=== PATIENT | female | born 1960 | race Caucasian/White ===

== ENCOUNTER → 2016-08-15 | Outpatient (CLI) | payer BC ==
[2016-08-16 13:27] LABS: Cow's Milk IgE Class CLASS 0; Egg White IgE <0.35 kU/L (<0.35); Peanut IgE <0.35 kU/L (<0.35); Potato IgE <0.35 kU/L (<0.35); Potato IgE Class CLASS 0; Soybean IgE <0.35 kU/L (<0.35)
== END | disposition home or self-care (01) ==
LOC: LABWHC1 15:02
PROVIDERS: ATTEND Otolaryngology
DX: J30.89 Other allergic rhinitis (principal)
CPT/HCPCS: 36415; 86003

== ENCOUNTER → 2018-01-29 | Outpatient (CLI) | payer SELFPAY | END | disposition home or self-care (01) | LOC: LABWHC1 10:11 | PROVIDERS: ATTEND Otolaryngology | DX: J30.89 Other allergic rhinitis (principal) | CPT/HCPCS: 36415; 82785 ==

== ENCOUNTER 2018-05-18 14:33 | Emergency (ER) | payer BC ==
[2018-05-18 14:42] VITALS: TEMP 98
[2018-05-18] MEDS ORDERED: SODIUM CHLORIDE 0.9% 1,000 ML IV STA (15:13)
--- NOTE | 2018-05-18 15:20 | ED ---
General Adult HPI - General Chief complaint: Chest Pain Stated complaint: Chest heavy,syncope Time Seen by Provider: 05/18/18 14:44 Source: patient Mode of arrival: wheelchair Limitations: no limitations - History of Present Illness Initial comments: Dictation was produced using [employer] dictation software. please excuse any grammatical, word or spelling errors. Chief Complaint: 57-year-old female with past medical history of several food ALLERGIES, asthma presents with syncope and generalized weakness. History of Present Illness: Patient is a 57-year-old female, she is brought in by her . Patient was sitting in the judaism. She finished singing in front of the crowd when she immediately felt a flush over her body. Patient states she fell severely weak. Patient barely ate today. She felt so weak that she stumbled. Other individuals at the judaism helped her to the office. A assisted her and walking outside when she almost fell to the ground. Patient states that earlier this morning she has been feeling otherwise very well. She is denies any episode like this in the past. Patient states since that episode she's been feeling severely fatigued. Patient states she had one episode of some pins and needles 3-4 days ago that lasted for several minutes but resolved spontaneously. Patient has nontender deficits today. Patient states he might have dark stools. Also reports that they're following up with ENT physician who also is an expert at food ALLERGIES. Patient has been abstaining from certain foods due to potential food ALLERGIES. reports that patient has been a little pale mild usual. The ROS documented in this emergency department record has been reviewed and confirmed by me. Those systems with pertinent positive or negative responses have been documented in the HPI. All other systems are other negative and/or noncontributory. PHYSICAL EXAM: General Impression: Alert and oriented x3, lethargic HEENT: Normocephalic atraumatic, extra-ocular movements intact, pupils equal and reactive to light bilaterally, mucous membranes moist, subconjunctival pallor Cardiovascular: Heart regular rate and rhythm, S1&S2 audible, no murmurs, rubs or gallops Chest: Lungs clear to auscultation bilaterally, no rhonchi, no wheeze, no rales Abdomen: Bowel sounds present, abdomen soft, non-tender, non-distended, no organomegaly Musculoskeletal: Pulses present and equal in all extremities, no peripheral edema Motor: Power 5/5 bilaterally, no focal deficits noted Neurological: CN II-XII grossly intact, no focal motor or sensory deficits noted Skin: Intact with no visualized rashes Psych: Normal affect and mood ED course: 57-year-old male presents after a generalized weakness and syncopal episode. As upon arrival are within acceptable limits. EKG is unremarkable. Patient is well-appearing. Labs obtained showing no acute process. CBC, coag panel, metabolic panel, electrolyte, T6 level were all within acceptable limits. Does have mild thrombocytopenia 129. Chest x-ray unremarkable. Patient given intravenous fluids. She is reevaluated and found to be in stable medical condition. Discussed with patient the importance of following with primary care physician for outpatient management of symptoms. Patient's blood pressure and repeat vital signs are improved. Patient clear for discharge. EKG interpretation: Ventricular rate sodium 1, normal sinus rhythm, AL interval 164, care is 80, QTc 425. No AL prolongation, no QTC prolongation, no ST or T- wave changes noted. . Overall, this EKG is unremarkable - Related Data Home Medications Medication Instructions Recorded Confirmed Fexofenadine/Pseudoephedrine 1 tab PO DAILY 05/18/18 05/18/18 [Beatriz-D 24 Hour Tablet] Montelukast [Singulair] 10 mg PO HS 05/18/18 05/18/18 Multivitamins, Thera [Multivitamin 1 tab PO DAILY 05/18/18 05/18/18 (formulary)] Allergies Allergy/AdvReac Type Severity Reaction Status Date / Time almond AdvReac Unknown Verified 05/18/18 15:28 bran AdvReac Unknown Verified 05/18/18 15:28 cashew nut AdvReac Unknown Verified 05/18/18 15:28 cheese AdvReac Unknown Verified 05/18/18 15:28 coconut AdvReac Unknown Verified 05/18/18 15:28 egg AdvReac Unknown Verified 05/18/18 15:28 gluten AdvReac Unknown Verified 05/18/18 15:28 milk AdvReac Unknown Verified 05/18/18 15:28 mustard AdvReac Unknown Verified 05/18/18 15:28 oregano AdvReac Unknown Verified 05/18/18 15:28 peanut AdvReac Unknown Verified 05/18/18 15:28 peas AdvReac Unknown Verified 05/18/18 15:28 sesame seed AdvReac Unknown Verified 05/18/18 15:28 soybean AdvReac Unknown Verified 05/18/18 15:28 spinach AdvReac Unknown Verified 05/18/18 15:28 sunflower seed AdvReac Unknown Verified 05/18/18 15:28 walnut AdvReac Unknown Verified 05/18/18 15:28 wheat AdvReac Unknown Verified 05/18/18 15:28 Yeast AdvReac Unknown Verified 05/18/18 15:28 MAYRA SEED AdvReac Unknown Uncoded 05/18/18 15:28 COTTAGE CHEESE AdvReac Unknown Uncoded 05/18/18 15:28 GREEN BEANS AdvReac Unknown Uncoded 05/18/18 15:28 SAFFLOWER AdvReac Unknown Uncoded 05/18/18 15:28 YOGURT AdvReac Unknown Uncoded 05/18/18 15:28 Review of Systems ROS Statement: Those systems with pertinent positive or pertinent negative responses have been documented in the HPI. ROS Other: All systems not noted in ROS Statement are negative. Past Medical History Past Medical History: Asthma History of Any Multi-Drug Resistant Organisms: None Reported Additional Past Surgical History / Comment(s): cyst removal from breast Past Psychological History: No Psychological Hx Reported Smoking Status: Never smoker Past Alcohol Use History: None Reported Past Drug Use History: None Reported General Exam Limitations: no limitations Course Vital Signs 05/18/18 05/18/18 14:37 15:01 Temperature 98 F Pulse Rate 78 Pulse Rate [ 70 Tack Maker ] Respiratory 18 18 Rate Blood Pressure 161/104 O2 Sat by Pulse 100 Oximetry Medical Decision Making - Lab Data Result diagrams: 05/18/18 15:27 05/18/18 15:27 Lab Results 05/18/18 05/18/18 05/18/18 Range/Units 15:27 15:27 15:27 WBC 4.8 (3.8-10.6) k/uL RBC 4.46 (3.80-5.40) m/uL Hgb 13.5 (11.4-16.0) gm/dL Hct 40.4 (34.0-46.0) % MCV 90.6 (80.0-100.0) fL MCH 30.2 (25.0-35.0) pg MCHC 33.4 (31.0-37.0) g/dL RDW 12.7 (11.5-15.5) % Plt Count 129 L (150-450) k/uL Neutrophils % 58 % Lymphocytes % 29 % Monocytes % 6 % Eosinophils % 4 % Basophils % 1 % Neutrophils # 2.8 (1.3-7.7) k/uL Lymphocytes # 1.4 (1.0-4.8) k/uL Monocytes # 0.3 (0-1.0) k/uL Eosinophils # 0.2 (0-0.7) k/uL Basophils # 0.0 (0-0.2) k/uL PT (9.0-12.0) sec INR (<1.2) APTT (22.0-30.0) sec Sodium 142 (137-145) mmol/L Potassium 4.2 (3.5-5.1) mmol/L Chloride 108 H (98-107) mmol/L Carbon Dioxide 26 (22-30) mmol/L Anion Gap 8 mmol/L BUN 22 H (7-17) mg/dL Creatinine 0.76 (0.52-1.04) mg/dL Est GFR (CKD-EPI)AfAm >90 (>60 ml/min/1.73 sqM) Est GFR (CKD-EPI)NonAf 87 (>60 ml/min/1.73 sqM) Glucose 96 (74-99) mg/dL Plasma Lactic Acid Daniele (0.7-2.0) mmol/L Calcium 9.5 (8.4-10.2) mg/dL Ionized Calcium Jesús 4.9 (4.5-5.3) mg/dL Phosphorus 3.9 (2.5-4.5) mg/dL Magnesium 2.1 (1.6-2.3) mg/dL Total Bilirubin 0.5 (0.2-1.3) mg/dL AST 33 (14-36) U/L ALT 32 (9-52) U/L Alkaline Phosphatase 57 (38-126) U/L Total Creatine Kinase 96 (30-135) U/L CK-MB (CK-2) 1.5 (0.0-2.4) ng/mL CK-MB (CK-2) Rel Index 1.6 Troponin I <0.012 (0.000-0.034) ng/mL Total Protein 7.0 (6.3-8.2) g/dL Albumin 4.3 (3.5-5.0) g/dL TSH 1.920 (0.465-4.680) mIU/L Urine Color Urine Appearance (Clear) Urine pH (5.0-8.0) Ur Specific [place] (1.001-1.035) Urine Protein (Negative) Urine Glucose (UA) (Negative) Urine Ketones (Negative) Urine Blood (Negative) Urine Nitrite (Negative) Urine Bilirubin (Negative) Urine Urobilinogen (<2.0) mg/dL Ur Leukocyte Esterase (Negative) Stool Occult Blood (Negative) 05/18/18 05/18/18 05/18/18 Range/Units 15:27 15:27 15:27 WBC (3.8-10.6) k/uL RBC (3.80-5.40) m/uL Hgb (11.4-16.0) gm/dL Hct (34.0-46.0) % MCV (80.0-100.0) fL MCH (25.0-35.0) pg MCHC (31.0-37.0) g/dL RDW (11.5-15.5) % Plt Count (150-450) k/uL Neutrophils % % Lymphocytes % % Monocytes % % Eosinophils % % Basophils % % Neutrophils # (1.3-7.7) k/uL Lymphocytes # (1.0-4.8) k/uL Monocytes # (0-1.0) k/uL Eosinophils # (0-0.7) k/uL Basophils # (0-0.2) k/uL PT 9.8 (9.0-12.0) sec INR 0.9 (<1.2) APTT 25.2 (22.0-30.0) sec Sodium (137-145) mmol/L Potassium (3.5-5.1) mmol/L Chloride (98-107) mmol/L Carbon Dioxide (22-30) mmol/L Anion Gap mmol/L BUN (7-17) mg/dL Creatinine (0.52-1.04) mg/dL Est GFR (CKD-EPI)AfAm (>60 ml/min/1.73 sqM) Est GFR (CKD-EPI)NonAf (>60 ml/min/1.73 sqM) Glucose (74-99) mg/dL Plasma Lactic Acid Daniele 0.9 (0.7-2.0) mmol/L Calcium (8.4-10.2) mg/dL Ionized Calcium Jesús (4.5-5.3) mg/dL Phosphorus (2.5-4.5) mg/dL Magnesium (1.6-2.3) mg/dL Total Bilirubin (0.2-1.3) mg/dL AST (14-36) U/L ALT (9-52) U/L Alkaline Phosphatase (38-126) U/L Total Creatine Kinase (30-135) U/L CK-MB (CK-2) (0.0-2.4) ng/mL CK-MB (CK-2) Rel Index Troponin I (0.000-0.034) ng/mL Total Protein (6.3-8.2) g/dL Albumin (3.5-5.0) g/dL TSH (0.465-4.680) mIU/L Urine Color Urine Appearance (Clear) Urine pH (5.0-8.0) Ur Specific [place] (1.001-1.035) Urine Protein (Negative) Urine Glucose (UA) (Negative) Urine Ketones (Negative) Urine Blood (Negative) Urine Nitrite (Negative) Urine Bilirubin (Negative) Urine Urobilinogen (<2.0) mg/dL Ur Leukocyte Esterase (Negative) Stool Occult Blood Negative (Negative) 05/18/18 Range/Units 15:32 WBC (3.8-10.6) k/uL RBC (3.80-5.40) m/uL Hgb (11.4-16.0) gm/dL Hct (34.0-46.0) % MCV (80.0-100.0) fL MCH (25.0-35.0) pg MCHC (31.0-37.0) g/dL RDW (11.5-15.5) % Plt Count (150-450) k/uL Neutrophils % % Lymphocytes % % Monocytes % % Eosinophils % % Basophils % % Neutrophils # (1.3-7.7) k/uL Lymphocytes # (1.0-4.8) k/uL Monocytes # (0-1.0) k/uL Eosinophils # (0-0.7) k/uL Basophils # (0-0.2) k/uL PT (9.0-12.0) sec INR (<1.2) APTT (22.0-30.0) sec Sodium (137-145) mmol/L Potassium (3.5-5.1) mmol/L Chloride (98-107) mmol/L Carbon Dioxide (22-30) mmol/L Anion Gap mmol/L BUN (7-17) mg/dL Creatinine (0.52-1.04) mg/dL Est GFR (CKD-EPI)AfAm (>60 ml/min/1.73 sqM) Est GFR (CKD-EPI)NonAf (>60 ml/min/1.73 sqM) Glucose (74-99) mg/dL Plasma Lactic Acid Daniele (0.7-2.0) mmol/L Calcium (8.4-10.2) mg/dL Ionized Calcium Jesús (4.5-5.3) mg/dL Phosphorus (2.5-4.5) mg/dL Magnesium (1.6-2.3) mg/dL Total Bilirubin (0.2-1.3) mg/dL AST (14-36) U/L ALT (9-52) U/L Alkaline Phosphatase (38-126) U/L Total Creatine Kinase (30-135) U/L CK-MB (CK-2) (0.0-2.4) ng/mL CK-MB (CK-2) Rel Index Troponin I (0.000-0.034) ng/mL Total Protein (6.3-8.2) g/dL Albumin (3.5-5.0) g/dL TSH (0.465-4.680) mIU/L Urine Color Light Yellow Urine Appearance Clear (Clear) Urine pH 7.0 (5.0-8.0) Ur Specific [place] 1.002 (1.001-1.035) Urine Protein Negative (Negative) Urine Glucose (UA) Negative (Negative) Urine Ketones Negative (Negative) Urine Blood Negative (Negative) Urine Nitrite Negative (Negative) Urine Bilirubin Negative (Negative) Urine Urobilinogen <2.0 (<2.0) mg/dL Ur Leukocyte Esterase Negative (Negative) Stool Occult Blood (Negative) Disposition Clinical Impression: Fatigue Disposition: HOME SELF-CARE Condition: Good Instructions (If sedation given, give patient instructions): Hypertension in the Older Adult (ED) Is patient prescribed a controlled substance at d/c from ED?: No Referrals: Kyle Cifuentes DO [Primary Care Provider] - 1-2 days Time of Disposition: 16:30
[2018-05-18 15:34] LABS: Basophils % (A) 1 %; Eosinophils # (A) 0.2 k/uL (0-0.7); Eosinophils % (A) 4 %; HCT 40.4 % (34.0-46.0); HGB 13.5 gm/dL (11.4-16.0); Lymphocytes # (A) 1.4 k/uL (1.0-4.8); Lymphocytes % (A) 29 %; MCH 30.2 pg (25.0-35.0); MCHC 33.4 g/dL (31.0-37.0); MCV 90.6 fL (80.0-100.0); Mean Platelet Volume 8.7; Monocytes # (A) 0.3 k/uL (0-1.0); Monocytes % (A) 6 %; Neutrophils # (A) 2.8 k/uL (1.3-7.7); Neutrophils % (A) 58 %; Platelet Count 129 k/uL (150-450); RBC 4.46 m/uL (3.80-5.40); RDW 12.7 % (11.5-15.5); WBC 4.8 k/uL (3.8-10.6)
[2018-05-18 15:39] LABS: Ionized Calcium 4.9 mg/dL (4.5-5.3)
[2018-05-18 15:43] LABS: INR 0.9 (<1.2); Partial Thromboplastin Time 25.2 sec (22.0-30.0); Prothrombin Time 9.8 sec (9.0-12.0)
[2018-05-18 15:43] LABS: Appearance,Urine Clear (Clear); Bilirubin,Urine Negative (Negative); Blood,Urine Negative (Negative); Color,Urine Light Yellow; Glucose,Urine (UA) Negative (Negative); Ketones,Urine Negative (Negative); Leukocyte Esterase,Urine Negative (Negative); Nitrite,Urine Negative (Negative); Protein,Urine Negative (Negative); Specific Gravity,Urine 1.002 (1.001-1.035); Urobilinogen,Urine <2.0 mg/dL (<2.0)
[2018-05-18 15:47] LABS: ALT 32 U/L (9-52); AST 33 U/L (14-36); Albumin 4.3 g/dL (3.5-5.0); Alkaline Phosphatase 57 U/L (38-126); Anion Gap 8 mmol/L; Blood Urea Nitrogen 22 mg/dL (7-17); Calcium 9.5 mg/dL (8.4-10.2); Carbon Dioxide 26 mmol/L (22-30); Chloride 108 mmol/L (98-107); Creatine Kinase 96 U/L (30-135); Glucose 96 mg/dL (74-99); Magnesium 2.1 mg/dL (1.6-2.3); Phosphorus 3.9 mg/dL (2.5-4.5); Potassium 4.2 mmol/L (3.5-5.1); Sodium 142 mmol/L (137-145); Total Bilirubin 0.5 mg/dL (0.2-1.3)
[2018-05-18 16:00] LABS: Creatine Kinase MB 1.5 ng/mL (0.0-2.4); Troponin I <0.012 ng/mL (0.000-0.034)
--- NOTE | 2018-05-18 16:10 | XR ---
EXAMINATION TYPE: XR chest 2V DATE OF EXAM: 05/18/2018 COMPARISON: NONE HISTORY: Weakness TECHNIQUE: Frontal and lateral views of the chest are obtained. FINDINGS: Heart and mediastinum are normal. Lungs are clear. There is mild thoracic dextroscoliosis. There is mild pectus excavatum chest deformity. There are chest leads. There is no pleural effusion. IMPRESSION: No cardiopulmonary disease. Normal heart.
[2018-05-18 16:46] VITALS: BP 139/93; PULSE 68; RESP 7
--- NOTE | 2018-05-20 05:09 | CDI ---
Dear Piero Bloom DO: Please do addendum of Physical examination. Thank you, Irene Garcia, Customer Solutions Specialist. If you have any questions, please contact Land Title Examiner at [phone]. [facility]
== END 2018-05-18 16:54 | disposition home or self-care (01) ==
LOC: EC 14:33
DX: R53.83 Other fatigue (principal); D69.6 Thrombocytopenia, unspecified; H11.133 Conjunctival pigmentations, bilateral; R53.1 Weakness; R55 Syncope and collapse; J45.909 Unspecified asthma, uncomplicated; Z91.010 Allergy to peanuts; Z91.018 Allergy to other foods; Z91.02 Food additives allergy status; Z91.011 Allergy to milk products; Z91.012 Allergy to eggs; Z79.899 Other long term (current) drug therapy; W01.0XXA Fall on same level from slipping, tripping and stumbling without subsequent striking against object, initial encounter; Y92.22 Religious institution as the place of occurrence of the external cause
CPT/HCPCS: 36415; 71046; 80053; 81003; 82272; 82330; 82550; 82553; 83605; 83735; 84100; 84443; 84484; 85025; 85610; 85730; 87086; 93005; 96360; 99285